=== PATIENT | male | born 1960 | race Caucasian/White ===

== ENCOUNTER 2020-07-01 06:37 | Day surgery (SDC) | payer MEDICAID, SELFPAY ==
[~2020-07-01] VITALS: Ht 182.9 cm; Wt 133.8 kg
[2020-07-01] MEDS ORDERED: DESFLURANE 15 MIN GAS INH ONE (09:41)
[2020-07-01] MEDS ORDERED: ROCURONIUM BROMIDE 10 MG/ML (ZEMURON) IV ONE (09:41)
[2020-07-01] MEDS ORDERED: ONDANSETRON HCL 4 MG/2 ML VIAL IVP ONE (09:41)
[2020-07-01] MEDS ORDERED: fentaNYL CITRATE/PF 100 MCG/2 ML AMP IVP ONE (09:41)
[2020-07-01] MEDS ORDERED: PROPOFOL 200MG/ 20ML VIAL (DIPRIVAN) IV ONE (09:41)
[2020-07-01] MEDS ORDERED: LR 1,000 ML IV.SOLN IV ONE (09:41)
[2020-07-01] MEDS ORDERED: DEXAMETHASONE SOD PHOSPHATE 4 MG/ML VIAL IVP ONE (09:41)
[2020-07-01] MEDS ORDERED: ONDANSETRON HCL 4 MG/2 ML VIAL IVP PRN (12:00)
[2020-07-01] MEDS ORDERED: OXYMETAZOLINE HCL 0.05% NASAL SPRAY NS PRN (12:15)
[2020-07-01] MEDS ORDERED: HYDROmorphone 1 INJ. 1 MG/ML CARTRIDGE ONE (12:20)
[2020-07-01] MEDS: HYDROmorphone 1 INJ. 1 MG/ML CARTRIDGE IVP PRN ×2 (12:20→12:28)
[2020-07-01] MEDS ORDERED: HYDROcodone/ACETAMIN 5-325 MG TAB (NORCO/ VICODIN) PO PRN (13:00)
[2020-07-01] MEDS ORDERED: ONDANSETRON 4 MG ODT TAB PO PRN (13:00)
[2020-07-01 14:04] VITALS: BP_SYST 135
[2020-07-01] MEDS ORDERED: NS 1000 ML IV.SOLN IV ONE (14:40)
== END 2020-07-01 13:45 | disposition home or self-care (01) ==
LOC: SDS 06:37 → SMU 06:37 → SDS 13:45
PROVIDERS: ATTEND Otolaryngology
DX: J34.2 Deviated nasal septum (principal); J34.3 Hypertrophy of nasal turbinates; G47.33 Obstructive sleep apnea (adult) (pediatric); G47.30 Sleep apnea, unspecified; Z68.41 Body mass index [BMI] 40.0-44.9, adult; E66.01 Morbid (severe) obesity due to excess calories; Z20.828 Contact with and (suspected) exposure to other viral communicable diseases; Z99.89 Dependence on other enabling machines and devices
CPT/HCPCS: 30140; 30520; J1100; J1170; J2405; J2704; J3010; J7030; J7120; U0003